=== PATIENT | male | born 1940 | race African-American/Black ===

== ENCOUNTER 2017-05-25 14:31 | Inpatient (IN) ==
[2017-05-25 15:46] LABS: Basophils # 0.1 10*3/uL (0.0-0.2); Basophils % 1.5 % (0.0-0.8); Eosinophils # 0.1 10*3/uL (0.0-0.87); Eosinophils % 1.7 % (0.00-10.9); Hematocrit 43.3 VOL% (42.0-52.0); Hemoglobin 14.1 GM/DL (14.0-18.0); Immature Granulocytes % 0.6 %; Immature Granulocytes Absolute 0.03 #; Lymphocytes # 0.7 10*3/uL (1.4-4.0); Lymphocytes % 12.7 % (21.2-54.2); Mean Corpuscular HGB Conc 32.6 GM/DL (32-36); Mean Corpuscular Hemoglobin 32 PG (27-34); Mean Corpuscular Volume 98.9 FL (87-102); Mean Platelet Volume 11.3 FL (9.6-12.0); Monocytes # 0.5 10*3/uL (0.11-0.8); Monocytes % 8.6 % (1.7-12.7); Neutrophils # 4.1 10*3/uL (1.4-7.4); Neutrophils % 74.9 % (38.7-73.9); Platelet Count 101 T/CUMM (130-400); Red Blood Count 4.38 MC/CUMM (3.8-5.5); Red Cell Distribution Width 16.2 % (9.3-17.3); White Blood Count 5.5 T/CUMM (4-12)
[2017-05-25 16:01] LABS: Partial Thromboplastin Time 39.7 SECS (0-40)
[2017-05-25 16:08] LABS: Alanine Aminotransferase 14 U/L (16-61); Albumin 2.5 G/DL (3.4-5.0); Alkaline Phosphatase 101 U/L (45-117); Aspartate Amino Transferase 29 U/L (0-37); Blood Urea Nitrogen 34 MG/DL (7-18); Calcium 8.2 MG/DL (8.5-10.1); Glucose 127 MG/DL (74-106); Potassium 4.2 MMOL/L (3.5-5.1); Sodium 136 MMOL/L (136-145); Troponin I Only 0.243 NG/ML (0.00-0.045)
[2017-05-25 16:09] LABS: PT Patient Result 80.9 SECS
[2017-05-25 16:11] LABS: INR 8.2
[2017-05-25] MEDS ORDERED: guaiFENesin/DM ER 600-30 MG TABLET PO PRN (16:42)
[2017-05-25] MEDS ORDERED: ACETAMINOPHEN 325 MG TABLET PO PRN (16:42)
[2017-05-25] MEDS ORDERED: MAGNESIUM SULF RIDER 2 GM in PREMIX 1 EACH IV PRN (16:42)
[2017-05-25] MEDS ORDERED: ONDANSETRON 4 MG/2 ML VIAL IV PRN (16:42)
[2017-05-25] MEDS ORDERED: LACTULOSE 20 GM/30 ML UDCUP PO PRN (16:42)
[2017-05-25] MEDS ORDERED: MAGNESIUM SULF RIDER 4 GM in PREMIX 1 EACH IV PRN (16:42)
[2017-05-25] MEDS ORDERED: ZALEPLON 5 MG CAPSULE PO PRN (16:42)
[2017-05-25] MEDS ORDERED: POTASSIUM CHLORIDE 20 MEQ TABLET PO PRN (16:42)
[2017-05-25] MEDS ORDERED: DOCUSATE SODIUM 100 MG CAPSULE PO PRN (16:42)
[2017-05-25] MEDS ORDERED: diphenhydrAMINE CAP 25 MG CAPSULE PO PRN (16:42)
[2017-05-25 19:31] LABS: Troponin I Only 0.224 NG/ML (0.00-0.045)
[2017-05-25] MEDS: FUROSEMIDE 40 MG/4 ML VIAL IV SCH (21:00)
[2017-05-25] MEDS ORDERED: CARVEDILOL 6.25 MG TABLET PO SCH (21:00)
[2017-05-25] MEDS: SPIRONOLACTONE 25 MG TABLET PO SCH (21:01)
[2017-05-25] MEDS: MAGNESIUM CHLORIDE 64 MG TABLET PO SCH (21:01)
[2017-05-25] MEDS: CAPTOPRIL 12.5 MG TABLET PO SCH (21:36)
[2017-05-25 23:30] LABS: Troponin I Only 0.213 NG/ML (0.00-0.045)
[2017-05-26 05:10] LABS: Basophils # 0.1 10*3/uL (0.0-0.2); Basophils % 1.4 % (0.0-0.8); Eosinophils # 0.1 10*3/uL (0.0-0.87); Eosinophils % 2.9 % (0.00-10.9); Hemoglobin 12.6 GM/DL (14.0-18.0); Immature Granulocytes % 0.6 %; Immature Granulocytes Absolute 0.03 #; Lymphocytes # 0.7 10*3/uL (1.4-4.0); Lymphocytes % 14.6 % (21.2-54.2); Mean Corpuscular HGB Conc 33.2 GM/DL (32-36); Mean Corpuscular Hemoglobin 33 PG (27-34); Mean Platelet Volume 11.7 FL (9.6-12.0); Monocytes # 0.6 10*3/uL (0.11-0.8); Monocytes % 12.1 % (1.7-12.7); Neutrophils # 3.3 10*3/uL (1.4-7.4); Neutrophils % 68.4 % (38.7-73.9); Platelet Count 83 T/CUMM (130-400); Red Blood Count 3.84 MC/CUMM (3.8-5.5); Red Cell Distribution Width 16.3 % (9.3-17.3); White Blood Count 4.9 T/CUMM (4-12)
[2017-05-26 05:25] LABS: Partial Thromboplastin Time 39.9 SECS (0-40)
[2017-05-26 05:42] LABS: Hypochromasia Slight; Target Cells Slight
[2017-05-26 05:43] LABS: Platelet Estimate Decreased
[2017-05-26 05:49] LABS: Albumin 2.2 G/DL (3.4-5.0); Bilirubin,Direct 1.25 MG/DL (0.0-0.20); Bilirubin,Indirect 0.8 MG/DL (0.0-1.0); Total Protein 5.7 G/DL (6.4-8.3)
[2017-05-26 05:50] LABS: PT Patient Result 60.4 SECS
[2017-05-26 05:51] LABS: INR 6.1
[2017-05-26 05:58] LABS: Calcium 7.7 MG/DL (8.5-10.1); Osmolality,Calculated 282.7 MOS/KG (273-304); Potassium 3.9 MMOL/L (3.5-5.1); Risk Ratio 2.61; Thyroid Stimulating Hormone 0.798 uIU/ml (0.358-3.74); VLDL CHOLESTEROL 15.8 MG/DL
[2017-05-26 07:21] LABS: Amorphous Crystals,Urine Occasional /HPF (Few); Apearance,Urine Slightly Hazy (Clear); Bilirubin,Urine Negative (Negative); Blood, Urine Moderate mg/dL (Negative); Glucose,Urine (UA) Negative (Negative); Ketones,Urine Negative (Negative); Mucus,Urine Occasional /LPF (Occasional); Nitrite,Urine Negative (Negative); Protein,Urine Negative; RBC,Urine 7 /HPF (0-4); Squamous Epithelial Cell,Urine Occasional /HPF (0-10); Urine Color Yellow (Yellow); Urine Specific Gravity 1.014 (1.001-1.035); Urine Urobilinogen < 2.0 EU/DL (0.2-1.0); WBC,Urine 1 /HPF (0-6)
[2017-05-26] MEDS: FUROSEMIDE 40 MG/4 ML VIAL IV SCH ×2 (12:13→16:54)
[2017-05-26] MEDS: SPIRONOLACTONE 25 MG TABLET PO SCH ×2 (12:13→21:13)
[2017-05-26] MEDS: ASPIRIN EC 81 MG TABLET PO SCH (12:13)
[2017-05-26] MEDS: CAPTOPRIL 12.5 MG TABLET PO SCH ×2 (12:13→21:13)
[2017-05-26] MEDS: MAGNESIUM CHLORIDE 64 MG TABLET PO SCH ×2 (12:13→21:12)
[2017-05-27 03:54] LABS: Basophils # 0.1 10*3/uL (0.0-0.2); Basophils % 1.2 % (0.0-0.8); Eosinophils # 0.1 10*3/uL (0.0-0.87); Eosinophils % 2.7 % (0.00-10.9); Hematocrit 37.4 VOL% (42.0-52.0); Hemoglobin 12.4 GM/DL (14.0-18.0); Immature Granulocytes % 0.4 %; Immature Granulocytes Absolute 0.02 #; Lymphocytes # 0.8 10*3/uL (1.4-4.0); Lymphocytes % 16.7 % (21.2-54.2); Mean Corpuscular HGB Conc 33.2 GM/DL (32-36); Mean Corpuscular Hemoglobin 32 PG (27-34); Mean Corpuscular Volume 97.4 FL (87-102); Mean Platelet Volume 11.5 FL (9.6-12.0); Monocytes # 0.5 10*3/uL (0.11-0.8); Monocytes % 10.9 % (1.7-12.7); Neutrophils # 3.3 10*3/uL (1.4-7.4); Neutrophils % 68.1 % (38.7-73.9); Red Blood Count 3.84 MC/CUMM (3.8-5.5); White Blood Count 4.9 T/CUMM (4-12)
[2017-05-27 03:56] LABS: Platelet Count 86 T/CUMM (130-400)
[2017-05-27 04:22] LABS: PT Patient Result 40.4 SECS
[2017-05-27 04:57] LABS: Calcium 7.9 MG/DL (8.5-10.1); Potassium 3.9 MMOL/L (3.5-5.1)
[2017-05-27] MEDS: ASPIRIN EC 81 MG TABLET PO SCH (06:35)
[2017-05-27 07:50] LABS: Hypochromasia 1+
[2017-05-27] MEDS: SPIRONOLACTONE 25 MG TABLET PO SCH ×2 (09:06→21:20)
[2017-05-27] MEDS: MAGNESIUM CHLORIDE 64 MG TABLET PO SCH ×2 (09:06→21:19)
[2017-05-27] MEDS: FUROSEMIDE 40 MG/4 ML VIAL IV SCH ×2 (09:06→16:59)
[2017-05-27] MEDS: CAPTOPRIL 12.5 MG TABLET PO SCH ×2 (09:07→21:18)
[2017-05-28 06:12] LABS: Basophils # 0.1 10*3/uL (0.0-0.2); Basophils % 1.2 % (0.0-0.8); Eosinophils # 0.1 10*3/uL (0.0-0.87); Eosinophils % 2.6 % (0.00-10.9); Hematocrit 37.6 VOL% (42.0-52.0); Hemoglobin 12.4 GM/DL (14.0-18.0); Immature Granulocytes % 0.6 %; Immature Granulocytes Absolute 0.03 #; Lymphocytes # 0.8 10*3/uL (1.4-4.0); Mean Corpuscular Hemoglobin 32 PG (27-34); Mean Corpuscular Volume 97.4 FL (87-102); Mean Platelet Volume 11.2 FL (9.6-12.0); Monocytes # 0.6 10*3/uL (0.11-0.8); Neutrophils # 3.5 10*3/uL (1.4-7.4); Neutrophils % 68.6 % (38.7-73.9); Platelet Count 92 T/CUMM (130-400); Red Blood Count 3.86 MC/CUMM (3.8-5.5); Red Cell Distribution Width 15.9 % (9.3-17.3); White Blood Count 5.1 T/CUMM (4-12)
[2017-05-28 06:19] LABS: Partial Thromboplastin Time 33.8 SECS (0-40)
[2017-05-28 06:24] LABS: INR 2.5
[2017-05-28 06:32] LABS: PT Patient Result 25.6 SECS
[2017-05-28 06:36] LABS: Calcium 8.1 MG/DL (8.5-10.1); Osmolality,Calculated 276.8 MOS/KG (273-304); Potassium 4.3 MMOL/L (3.5-5.1)
[2017-05-28 06:40] LABS: Hypochromasia 2+
[2017-05-28] MEDS: SPIRONOLACTONE 25 MG TABLET PO SCH ×2 (08:34→21:00)
[2017-05-28] MEDS: CAPTOPRIL 12.5 MG TABLET PO SCH ×2 (08:34→21:00)
[2017-05-28] MEDS: MAGNESIUM CHLORIDE 64 MG TABLET PO SCH ×2 (08:34→21:01)
[2017-05-28] MEDS: FUROSEMIDE 40 MG/4 ML VIAL IV SCH ×2 (08:35→16:30)
[2017-05-28] MEDS: ASPIRIN EC 81 MG TABLET PO SCH (08:35)
[2017-05-28] MEDS: APIXABAN 5 MG TABLET PO SCH ×2 (10:23→21:01)
[2017-05-28] MEDS ORDERED: WARFARIN 4 MG TABLET PO SCH (18:00)
[2017-05-29 03:27] LABS: Basophils # 0.1 10*3/uL (0.0-0.2); Basophils % 1.2 % (0.0-0.8); Eosinophils # 0.2 10*3/uL (0.0-0.87); Eosinophils % 3.2 % (0.00-10.9); Hematocrit 36.6 VOL% (42.0-52.0); Hemoglobin 12.5 GM/DL (14.0-18.0); Immature Granulocytes % 1.2 %; Immature Granulocytes Absolute 0.06 #; Lymphocytes # 0.8 10*3/uL (1.4-4.0); Lymphocytes % 15.2 % (21.2-54.2); Mean Corpuscular HGB Conc 34.2 GM/DL (32-36); Mean Corpuscular Hemoglobin 33 PG (27-34); Mean Corpuscular Volume 96.3 FL (87-102); Mean Platelet Volume 11.3 FL (9.6-12.0); Monocytes # 0.5 10*3/uL (0.11-0.8); Monocytes % 10.5 % (1.7-12.7); Neutrophils # 3.5 10*3/uL (1.4-7.4); Neutrophils % 68.7 % (38.7-73.9); Red Cell Distribution Width 15.9 % (9.3-17.3); White Blood Count 5.1 T/CUMM (4-12)
[2017-05-29 03:33] LABS: Platelet Count 92 T/CUMM (130-400)
[2017-05-29 03:36] LABS: PT Patient Result 20.6 SECS; Partial Thromboplastin Time 34.1 SECS (0-40)
[2017-05-29 03:59] LABS: Calcium 7.9 MG/DL (8.5-10.1); Osmolality,Calculated 276.8 MOS/KG (273-304); Potassium 4.3 MMOL/L (3.5-5.1)
[2017-05-29 04:50] LABS: Giant Platelets Few; Hypochromasia 1+
[2017-05-29 04:51] LABS: Platelet Estimate Decreased
[2017-05-29] MEDS: APIXABAN 5 MG TABLET PO SCH (08:47)
[2017-05-29] MEDS: SPIRONOLACTONE 25 MG TABLET PO SCH (08:48)
[2017-05-29] MEDS: CAPTOPRIL 12.5 MG TABLET PO SCH (08:48)
[2017-05-29] MEDS: MAGNESIUM CHLORIDE 64 MG TABLET PO SCH (08:48)
[2017-05-29] MEDS: ASPIRIN EC 81 MG TABLET PO SCH (08:50)
[2017-05-29] MEDS: FUROSEMIDE 40 MG/4 ML VIAL IV SCH (08:50)
[2017-05-29] MEDS ORDERED: CARVEDILOL 3.125 MG TABLET PO SCH (12:00)
[2017-05-29 12:12] VITALS: BP 103/75
[2017-05-29 15:38] LABS: DRVVT Confirmation 0.6 ratio (0.0 - 1.1); DRVVT Mix Ratio (Mayo Reflex) 1.1 ratio (0.0 - 1.1); PT Mix 1:1 (Mayo Reflex) 13.8 sec; Phospholipid Ab IgM, S 10.9 MPL; Thrombin Time (Bovine), P 23 sec (15 - 23)
[2017-05-30 11:25] LABS: Coag Factor VII Assay, P 5 % (65 - 180)
[2017-05-31 17:47] LABS: DRVVT Screen Ratio 1.4 ratio (0.0 - 1.1)
[2017-06-01 09:55] LABS: INR 6.6
== END 2017-05-29 15:16 | disposition home health service (06) | DRG 166 ==
LOC: N.ED 14:31 → N.CC 16:42 → N.TELES 05-27 13:59
PROVIDERS: ADMIT Internal Medicine Cardiovascular Disease; ATTEND Internal Medicine Cardiovascular Disease